=== PATIENT | male | born 1950 | race Caucasian/White ===

== ENCOUNTER 2016-10-04 08:27 | Day surgery (SDC) | payer MEDICARE ==
[~2016-10-04 08:27] MED LIST: LACTATED RINGERS 1,000 ML IV SCH
[2016-10-04 09:43] VITALS: TEMP 96.8
[2016-10-04] MEDS ORDERED: PROPOFOL 10 MG/ML 20 ML VIAL IV ONE (10:31)
[2016-10-04] MEDS ORDERED: LIDOCAINE 1% INJ 10MG/ML (20 ML MDV) ONE (10:31)
--- NOTE | 2016-10-04 10:45 | P.PCN ---
Date of Procedure: 10/04/16 Preoperative Diagnosis: Postoperative Diagnosis: Procedure(s) Performed: BRIEF HISTORY: Patient is a 66-year-old pleasant white male, scheduled for an elective colonoscopy as a part of evaluation of prior history of colon polyps. 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 PROCEDURE PERFORMED: Colonoscopy with snare polypectomy and biopsy. PREOPERATIVE DIAGNOSIS: History of colon polyps. IV sedation per Anesthesia. PROCEDURE: After informed consent was obtained, the patient, was brought into the endoscopy unit. IV sedation was administered by Anesthesia under continuous monitoring. Digital rectal examination was normal. Initially the Olympus CF- 160 flexible video colonoscope was then inserted in the rectum, gradually advanced into the cecum without any difficulty. Careful examination was performed as the scope was gradually being withdrawn. Ileocecal valve and the appendiceal orifice were visualized and appeared normal. Prep was excellent. Mucosa of the cecum, ascending colon, transverse colon, appeared normal. In the descending colon there was a 5 mm polyp that was removed by biopsy. In the sigmoid colon there was a 1 cm polyp removed by snare polypectomy. Scattered sigmoid diverticulosis seen. The rest of the descending colon, sigmoid colon, and rectum appeared normal. Retroflexion was performed in the rectum and no lesions were seen. The patient tolerated the procedure well. IMPRESSION: 5 mm descending colon polyp status post removal by biopsy 1 cm sigmoid colon polyp status post polypectomy Scattered sigmoid diverticulosis RECOMMENDATIONS: Findings of this examination were discussed with the patient as well as his family. she was advised to follow with the biopsy results. If the biopsy shows a tubular adenoma, she can have a repeat colonoscopy in 5 years. Implants: Indications for Procedure: Operative Findings: Description of Procedure:
[2016-10-04 10:50] VITALS: RESP 18
[2016-10-04 11:06] VITALS: BP 117/56; PULSE 72
== END 2016-10-04 11:20 | disposition home or self-care (01) ==
LOC: ORWHC2ENDO 08:27
PROVIDERS: ATTEND Internal Medicine Gastroenterology
DX: D12.4 Benign neoplasm of descending colon (principal); D12.5 Benign neoplasm of sigmoid colon; K57.30 Diverticulosis of large intestine without perforation or abscess without bleeding; Z86.010 Personal history of colon polyps; Z79.82 Long term (current) use of aspirin; Z79.899 Other long term (current) drug therapy; I10 Essential (primary) hypertension; E78.5 Hyperlipidemia, unspecified
CPT/HCPCS: 88305; 45380; 45385; J2001; J2704

== ENCOUNTER → 2017-07-03 | Outpatient (CLI) | payer MEDICARE ==
--- NOTE | 2017-07-03 12:07 | XR ---
EXAMINATION TYPE: XR abdomen 1V DATE OF EXAM: 07/03/2017 11:58 AM CLINICAL HISTORY: Lower abdominal pain per patient. Constipation per order. TECHNIQUE: Two Upright KUB images of the abdomen are obtained. COMPARISON: None. FINDINGS: Scattered gas is seen in non-distended small bowel loops. Gas and fecal material is seen in non-distended colon. There is 8mm left-sided calculus L2 level mid pole level left kidney. A few tin y pelvic phleboliths are felt present. No pneumoperitoneum is identified. Slightly elevated left dano diaphragm is seen. Lung bases are clear. Visualized osseous structures are intact. IMPRESSION: Overall nonobstructive bowel gas pattern. Incidental 8 mm left renal calculus.
== END | disposition home or self-care (01) ==
LOC: RADXRMAIN 11:45
PROVIDERS: ATTEND Internal Medicine
DX: N20.0 Calculus of kidney (principal)
CPT/HCPCS: 74018

== ENCOUNTER → 2017-07-15 | Outpatient (CLI) | payer MEDICARE ==
--- NOTE | 2017-07-16 08:00 | CT ---
EXAMINATION TYPE: CT abdomen pelvis wo con DATE OF EXAM: 07/15/2017 COMPARISON: NONE HISTORY: Left flank pain. CT DLP: 1054 mGycm Examination of the solid and hollow viscera is limited given the lack of contrast. FINDINGS: LUNG BASES: No evidence for nodule. No evidence for infiltrate. LIVER/GB: The gallbladder is unremarkable. No space-occupying hepatic lesion. PANCREAS: No pancreatic mass identified. No inflammatory process seen. SPLEEN: No evidence for splenomegaly. No intrasplenic lesions seen. ADRENALS: No adrenal nodules identified. No evidence for thickening. KIDNEYS: Large calculus upper pole left kidney measuring 1.7 cm. Approximately 5 smaller calculi seen scattered within the left kidney all measuring less than 5 mm. Fullness of the left renal collecting system without obstructing calculus at this time. The right kidney demonstrates a 3 mm calculus lowe r pole. No right-sided hydronephrosis. No renal masses detected. BOWEL: Appendix has a normal appearance. No evidence of bowel obstruction. No inflammatory process. Lymph nodes: No evidence for adenopathy greater than 1 cm. Abdominal aorta: Atheromatous changes seen. No evidence for aneurysm. Genital organs: No significant abnormality. Other: No significant abnormality. IMPRESSION: 1. Bilateral nonobstructing nephrolithiasis.
== END | disposition home or self-care (01) ==
LOC: RADCTMAIN 17:28
PROVIDERS: ATTEND Internal Medicine
DX: N20.0 Calculus of kidney (principal)
CPT/HCPCS: 74176

== ENCOUNTER → 2018-01-07 | Outpatient (CLI) | payer MEDICARE ==
--- NOTE | 2018-01-07 13:09 | XR ---
EXAMINATION TYPE: XR KUB DATE OF EXAM: 01/07/2018 CLINICAL DATA: 67-year-old male history of bilateral renal stones., [facility] COMPARISON: 07/03/2017 FINDINGS: Nonobstructive bowel gas pattern. Supine imaging limited for assessment of free air. Mild stool in th e right side of the abdomen. A 1.3 cm left-sided renal calculus is larger as compared to 8 mm on 07/03/2017. No radiographically ap parent right-sided renal calculi. Multiple pelvic phleboliths. IMPRESSION: 1.3 cm left upper pole renal calculus larger from 8 mm on 07/03/2017. [facility] are not well-demonstrated radiographically.
== END | disposition home or self-care (01) ==
LOC: RADXRMAIN 09:27
PROVIDERS: ATTEND Urology
DX: N20.0 Calculus of kidney (principal)
CPT/HCPCS: 74018

== ENCOUNTER → 2018-08-24 | Outpatient (CLI) | payer MEDICARE ==
--- NOTE | 2018-08-24 16:34 | US ---
EXAMINATION TYPE: US carotid duplex BILAT DATE OF EXAM: 08/24/2018 COMPARISON: None CLINICAL HISTORY: 68-year-old male I65.23 Occulsion Stenosis,. TECHNIQUE: Carotid duplex ultrasound examination. Indirect Doppler criteria is utilized. FINDINGS: EXAM MEASUREMENTS: RIGHT: Peak Systolic Velocity (PSV) cm/sec ----- Right CCA: 105.3 ----- Right ICA: 94.2 ----- Right ECA: 90.0 ICA/CCA ratio: 0.9 RIGHT: End Diastole cm/sec ----- Right CCA: 22.0 ----- Right ICA: 29.0 ----- Right ECA: 9.5 LEFT: Peak Systolic Velocity (PSV) cm/sec ----- Left CCA: 105.3 ----- Left ICA: 102.5 ----- Left ECA: 110.1 ICA/CCA ratio: 1.0 LEFT: End Diastole cm/sec ----- Left CCA: 22.1 ----- Left ICA: 30.9 ----- Left ECA: 10.8 VERTEBRALS (direction of flow): Right Vertebral: Antegrade Left Vertebral: Antegrade Rhythm: Normal Blend Technician notes: No elevated velocities, no significant stenosis. IMPRESSION: No hemodynamically significant stenosis appreciated in either internal carotid artery. Criteria for Assigning % of Stenosis / Diameter reduction (Estimation based on the indirect measurements of the internal carotid artery velocities (ICA PSV). 1. Normal (no stenosis)=ICA PSV < 125 cm/s: ratio < 2.0: ICA EDV<40 cm/s. 2. Less than 50% stenosis=ICA PSV < 125 cm/s: ratio < 2.0: ICA EDV<40 cm/s. 3. 50 to 69% stenosis=ICA PSV of 125 to 230 cm/s: ration 2.0 ? 4.0: ICA EDV 40-100 cm/s. 4. Greater than 70% stenosis to near occlusion= ICA PSV > 230 cm/s: ratio > 4.0: ICA EDV > 100 cm/s. 5. Near occlusion= ICA PSV velocities may be low or undetectable: variable ratio and ICA EDV. 6. Total occlusion=unable to detect flow.
--- NOTE | 2018-08-25 09:51 | ECHOF ---
Referral Reason:M54.5, M54.17 MEASUREMENTS -------- HEIGHT: 177.8 cm WEIGHT: 90.1 kg BP: 170/76 RVIDd: 3.5 cm (< 3.3) IVSd: 1.4 cm (0.6 - 1.1) LVIDd: 3.4 cm (3.9 - 5.3) LVPWd: 1.9 cm (0.6 - 1.1) IVSs: 1.6 cm LVIDs: 2.2 cm LVPWs: 1.7 cm LAESV Index (A-L): 10.81 ml/m Ao Diam: 3.2 cm (2.0 - 3.7) AV Cusp: 2.1 cm (1.5 - 2.6) MV EXCURSION: 11.714 mm (> 18.000) MV EF SLOPE: 71 mm/s (70 - 150) EPSS: 1.1 cm MV E Valentin: 0.77 m/s MV DecT: 176 ms MV A Valentin: 0.87 m/s MV E/A Ratio: 0.89 RAP: 5.00 mmHg RVSP: 16.53 mmHg FINDINGS -------- Sinus rhythm. This was a technically adequate study. The left ventricular size is normal. There is moderate concentric left ventricular hypertrophy. O verall left ventricular systolic function is normal with, an EF between 60 - 65 %. The diastolic fi lling pattern is normal for the age of the patient 8.78. The right ventricle is mildly enlarged. Normal LA size by volume 22+/-6 ml/m2. RA appears enlarged. Interatrial and interventricular septum intact. The aortic valve is trileaflet and appears structurally normal. There is mild aortic valve sclerosi s. Mild mitral annular calcification present. Mild mitral regurgitation is present. Mild tricuspid regurgitation present. There is no evidence of pulmonary hypertension. The right v entricular systolic pressure, as measured by Doppler, is 16.53mmHg. There is no pulmonic regurgitation present. The aortic root size is normal. The inferior vena cava is mildly dilated. Echo free space represents a pericardial fat pad. There is no pericardial effusion. CONCLUSIONS -------- 1. Sinus rhythm. 2. This was a technically adequate study. 3. The left ventricular size is normal. 4. There is moderate concentric left ventricular hypertrophy. 5. Overall left ventricular systolic function is normal with, an EF between 60 - 65 %. 6. The diastolic filling pattern is normal for the age of the patient 8.78 7. The right ventricle is mildly enlarged. 8. Normal LA size by volume 22+/-6 ml/m2. 9. RA appears enlarged. 10. Interatrial and interventricular septum intact. 11. The aortic valve is trileaflet and appears structurally normal. 12. There is mild aortic valve sclerosis. 13. Mild mitral annular calcification present. 14. Mild mitral regurgitation is present. 15. Mild tricuspid regurgitation present. 16. There is no evidence of pulmonary hypertension. 17. The right ventricular systolic pressure, as measured by Doppler, is 16.53mmHg. 18. There is no pulmonic regurgitation present. 19. The aortic root size is normal. 20. The inferior vena cava is mildly dilated. 21. Echo free space represents a pericardial fat pad. 22. There is no pericardial effusion. CUB REPORTER: Susanna Morrell RDCS
== END | disposition home or self-care (01) ==
LOC: RADUSWWP 14:50
PROVIDERS: ATTEND Internal Medicine
DX: I08.1 Rheumatic disorders of both mitral and tricuspid valves (principal); I65.23 Occlusion and stenosis of bilateral carotid arteries
CPT/HCPCS: 93306; 93880

== ENCOUNTER 2020-10-18 07:51 | Day surgery (SDC) | payer MEDICARE ==
[2020-10-13 14:32] VITALS: BMI 26.1
[~2020-10-18 07:51] MED LIST changes: +LIDOCAINE 1% (10MG/ML) FOR IV START INTRADERMA PRN
[2020-10-18 08:12] VITALS: TEMP 97.5
[2020-10-18] MEDS ORDERED: LACTATED RINGERS 1,000 ML IV ONE (08:12)
[2020-10-18] MEDS ORDERED: PROPOFOL 10 MG/ML 20 ML VIAL IV ONE (08:53)
[2020-10-18] MEDS ORDERED: LIDOCAINE 1% INJ 10MG/ML (20 ML MDV) ONE (08:53)
[2020-10-18 09:23] VITALS: RESP 16
--- NOTE | 2020-10-18 09:26 | P.PCN ---
Date of Procedure: 10/18/20 Procedure(s) Performed: BRIEF HISTORY: Patient is a 70-year-old pleasant white male scheduled for an elective colonoscopy as a part of value should prior history of colon polyps. PROCEDURE PERFORMED: Colonoscopy With snare polypectomy PREOPERATIVE DIAGNOSIS: history of colon polypsIV sedation IVper Anesthesia. PROCEDURE: After informed consent was obtained, the patient, was brought into the endoscopy unit. IV sedation was administered by Anesthesia under continuous monitoring. Digital rectal examination was normal. Initially the Olympus CF-160 flexible video colonoscope was then inserted in the rectum, gradually advanced into the cecum without any difficulty. Careful examination was performed as the scope was gradually being withdrawn. Ileocecal valve and the appendiceal orifice were visualized and appeared normal. Prep was excellent. Mucosa of the cecum, appeared normal. In the ascending colon there were 2 polyps measuring 1 cm in size both of which were removed by snare polypectomy. Rest of the ascending colon, transverse colon, descending colon, appeared normal. The sigmoid colon there was a 5 mm polyp removed by snare polypectomy. Scattered sigmoid diverticulosis seen. Rest of the sigmoid colon, and rectum appeared normal. Retroflexion was performed in the rectum and no lesions were seen. The patient tolerated the procedure well. IMPRESSION: 1 cm 2 flat ascending colon polyp status post polypectomy 5 mm; sigmoid polyp status post polypectomy Scattered sigmoid diverticulosis RECOMMENDATIONS: Findings of this examination were discussed with the patient as well as his family. He was advised to follow with the biopsy results. If the biopsy reveals adenoma he was advised to have a repeat colonoscopy in 3 years
[2020-10-18 09:38] VITALS: BP 123/65; PULSE 65
== END 2020-10-18 10:14 | disposition home or self-care (01) ==
LOC: ORWHC2ENDO 07:51
PROVIDERS: ATTEND Internal Medicine Gastroenterology
DX: D12.2 Benign neoplasm of ascending colon (principal); D12.3 Benign neoplasm of transverse colon; D12.5 Benign neoplasm of sigmoid colon; K57.30 Diverticulosis of large intestine without perforation or abscess without bleeding; E78.5 Hyperlipidemia, unspecified; I10 Essential (primary) hypertension; Z79.82 Long term (current) use of aspirin
CPT/HCPCS: 45385; 88305; J2001; J2704

== ENCOUNTER → 2022-09-04 | Outpatient (CLI) | payer MEDICARE ==
--- NOTE | 2022-09-04 11:30 | CT ---
EXAMINATION TYPE: CT heart w calcium score DATE OF EXAM: 09/04/2022 COMPARISON: None HISTORY: Screening for cardiovascular disorder. 213.9 CT DLP: 81.60 mGycm Automated exposure control for dose reduction was used. CT CALCIUM SCORING Coronary calcium is a marker for plaque (fatty deposits) in a blood vessel or atherosclerosis (harden ing of the arteries). The presence and amount of calcium detected in a coronary artery by the CT sca n, indicates the presence and amount of atherosclerotic plaque. These calcium deposits appear years before the development of heart disease symptoms such as chest pain and shortness of breath. A calcium score is computed for each of the coronary arteries based upon the volume and density of th e calcium deposits. This can be referred to as your calcified plaque burden. It does not correspond directly to the percentage of narrowing in the artery but does correlate with the severity of the un derlying coronary atherosclerosis. PROCEDURE TECHNIQUE - Prospective Gating was used. Slice thickness: 3mm. Density threshold (HU): 130, Pixel threshold: 3, Algorithm: discrete. RESULTS Region: LM Calcium Score (Agatston): 0 Volume (mm3): 0 Mass (g): 0 Region: RCA Calcium Score (Agatston): 0 Volume (mm3): 0 Mass (g): 0 Region: LAD Calcium Score (Agatston): 4.07 Volume (mm3): 2.03 Mass (g): 6.1 Region: CX Calcium Score (Agatston): 0 Volume (mm3): 0 Mass (g): 0 Region: PDA Calcium Score (Agatston): 0 Volume (mm3): 0 Mass (g): 0 Total: Calcium Score (Agatston): 4.07 Volume (mm3): 2.03 Mass (g): 6.1 TOTAL CALCIUM SCORE: 4.07 Trace amount pericardial fluid. Visualized lung rivers are hypertrophic changes spine. Small hiatal h ernia. There is calcification at the level of the aortic valve. IMPRESSION: Calcium Score: 4.07 Implication: Minimal identifiable plaque Risk of Coronary Artery Disease: Very unlikely, less than 10% risk of coronary artery disease. There is some mild calcification of the aortic valve. CALCIUM SCORE IMPLICATION RISK OF C ORONARY ARTERY DISEASE 0 No identifiable plaque Very low, generally less than 5% 1-10 Minimal identifiable plaque Very unlikely, less than 10% 11-100 Definite, at least mild atherosclerotic plaque Mild or m inimal coronary narrowings likely 101-400 Definite, at least moderate atherosclerotic plaque Mild coronary ar alejandro disease highly likely, significant narrowing possible 401 or Higher Extensive atherosclerotic plaque High lik elihood of at least one significant coronary narrowing
--- NOTE | 2022-09-04 12:30 | US ---
EXAMINATION TYPE: US carotid duplex BILAT DATE OF EXAM: 09/04/2022 COMPARISON: NONE CLINICAL INDICATION: Male, 72 years old with history of I65.23 Carotid stenosis bilateral; stenosis TECHNIQUE: Carotid duplex ultrasound examination. Indirect Doppler criteria was utilized. FINDINGS: EXAM MEASUREMENTS: RIGHT: Peak Systolic Velocity (PSV) cm/sec ----- Right CCA: 117 ----- Right ICA: 121 ----- Right ECA: 140 ICA/CCA ratio: 1.0 RIGHT: End Diastole cm/sec ----- Right CCA: 20.8 ----- Right ICA: 29.9 ----- Right ECA: 9.9 LEFT: Peak Systolic Velocity (PSV) cm/sec ----- Left CCA: 150 ----- Left ICA: 135 ----- Left ECA: 133 ICA/CCA ratio: 0.9 LEFT: End Diastole cm/sec ----- Left CCA: 27.2 ----- Left ICA: 29 ----- Left ECA: 0 VERTEBRALS (direction of flow): Right Vertebral: Antegrade Left Vertebral: Antegrade Rhythm: Normal COURT COMMISSIONER NOTES: No significant stenosis seen IMPRESSION: 1. Atheromatous plaquing anteriorly to moderate stenosis, between 50 and 69%, of the left internal ca rotid artery. 2. Mild plaquing is mild narrowing of less than 50% at the right carotid bifurcation. Criteria for Assigning % of Stenosis / Diameter reduction (Estimation based on the indirect measurements of the internal carotid artery velocities (ICA PSV). 1. Normal (no stenosis)=ICA PSV < 125 cm/s: ratio < 2.0: ICA EDV<40 cm/s. 2. Less than 50% stenosis=ICA PSV < 125 cm/s: ratio < 2.0: ICA EDV<40 cm/s. 3. 50 to 69% stenosis=ICA PSV of 125 to 230 cm/s: ration 2.0 ? 4.0: ICA EDV 40-100 cm/s. 4. Greater than 70% stenosis to near occlusion= ICA PSV > 230 cm/s: ratio > 4.0: ICA EDV > 100 cm/s. 5. Near occlusion= ICA PSV velocities may be low or undetectable: variable ratio and ICA EDV. 6. Total occlusion=unable to detect flow.
== END | disposition home or self-care (01) ==
LOC: RADCTMAIN 10:06
PROVIDERS: ATTEND Internal Medicine
DX: Z13.6 Encounter for screening for cardiovascular disorders (principal); I65.23 Occlusion and stenosis of bilateral carotid arteries; I35.8 Other nonrheumatic aortic valve disorders
CPT/HCPCS: 75571; 93880

== ENCOUNTER → 2023-04-16 | Outpatient (CLI) | payer MEDICARE ==
[2023-04-16 12:48] LABS: African American GFR (CKD) >90 (>60 ml/min/1.73 sqM); Blood Urea Nitrogen 16 mg/dL (9-20); Non-African American GFR(CKD) 87 (>60 ml/min/1.73 sqM)
--- NOTE | 2023-04-16 16:31 | CT ---
EXAMINATION TYPE: CT head without contrast CT angio head neck DATE OF EXAM: 04/16/2023 COMPARISON: MRI 01/29/2012. HISTORY: 72-year-old male I65.23 OCCLUSION AND STENOSIS OF BILATERAL CAROTID TECHNIQUE: Contiguous axial scanning of the brain performed without IV contrast. Subsequent postcontr ast scanning of the head and neck utilizing 65 mL of Isovue 370. Coronal and sagittal reconstructions performed. 3-D reconstructions generated on a dedicated independent workstation. CT DLP: 1429.2 mGycm Automated exposure control for dose reduction was used. FINDINGS: CT head without contrast: There is moderate volume loss along the bilateral cerebral convexities. Moderate patchy white matter hypodensities in both cerebral hemispheres. No evidence for acute intracranial hemorrhage, acute ischemic change, mass, mass effect, midline shif t, or extra-axial fluid collection. No hydrocephalus. No effacement of cerebral sulci or basal subara chnoid cisterns. Turcios-white matter differentiation is maintained. Some rounded prominence in the region of the pituitary gland. This appears increased compared to the patient's oldest 01/29/2012 MRI. Scattered mild to moderate mucosal thickening ethmoid air cells. There is a polyp or mucous retention cyst left sphenoid sinus measuring 1.1 cm. Mastoid air cells are well pneumatized. The globes are in tact. CTA NECK: Convention arch vessel branching anatomy. Left vertebral artery is slightly more dominant but both vertebral arteries are otherwise patent thro ughout the course. The bilateral common and bilateral internal carotid arteries are widely patent without any significan t narrowing. NASCET criteria is utilized. CTA HEAD: The V4 segment right vertebral artery becomes hypoplastic after the PICA takeoff. Otherwise, vertebra l and basilar arteries are patent. There is anatomic variation with persistent origin bilateral posterior cerebral arteries with h ypoplastic P1 segments on both sides. Posterior circulation is otherwise patent. The bilateral internal carotid arteries are patent. Slightly hypoplastic A1 segment right anterior ce rebral artery. Anterior circulation otherwise patent. No aneurysmal change identified. Dural venous sinuses are patent. IMPRESSION: CT HEAD WITHOUT CONTRAST: 1. MODERATE ATROPHY ALONG THE BILATERAL CEREBRAL CONVEXITIES. MODERATE BURDEN OF CHRONIC SMALL VESSEL ISCHEMIC DISEASE. 2. NO ACUTE INTRACRANIAL ABNORMALITY SEEN. 3. ROUNDED PROMINENCE TO THE PITUITARY GLAND, INCREASED FROM PATIENT'S OLD 2011 MRI. CONSIDER DEDICAT ED PITUITARY MRI TO EXCLUDE AN UNDERLYING LESION SUCH A PITUITARY ADENOMA. CTA NECK: 4. WIDELY PATENT VERTEBRAL AND CAROTID ARTERIES OF THE NECK. THE LEFT VERTEBRAL ARTERY IS SLIGHTLY MO RE DOMINANT. CTA HEAD: 5. NO LARGE VESSEL INTRACRANIAL ARTERIAL OCCLUSION, SIGNIFICANT STENOSIS, OR ANEURYSMAL CHANGE IS SEE N. 6. 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
== END | disposition home or self-care (01) ==
LOC: RADCTMAIN 11:38
PROVIDERS: ATTEND Internal Medicine
DX: I65.23 Occlusion and stenosis of bilateral carotid arteries (principal); I67.82 Cerebral ischemia; D36.7 Benign neoplasm of other specified sites; Q27.8 Other specified congenital malformations of peripheral vascular system
CPT/HCPCS: 82565; 84520; 70496; 70498; 36415; Q9967

== ENCOUNTER → 2023-07-03 | Outpatient (CLI) | payer MEDICARE ==
--- NOTE | 2023-07-03 14:54 | MR ---
EXAMINATION TYPE: MR pituitary wo/w con DATE OF EXAM: 07/03/2023 2:36 PM CLINICAL INDICATION:Male, 73 years old with history of D35.2 BENIGN NEOPLASM OF PITUITARY GLAND, Abno rmal CT head. COMPARISON: 01/29/2012. TECHNIQUE: Multi planar, multi sequence imaging was performed through the brain. Specialized thin s equences were obtained through the pituitary gland/sella turcica. Pre-and post gadolinium sequences were obtained. IV Contrast: 8 cc Gadavist FINDINGS: There is a hypoenhancing mass in the left pituitary with slight rightward deviation of the pituitary stalk mass measures approximately 10 mm. The ji-white junctions, ventricular system, and basal cisterns appear unremarkable. IMPRESSION: Left pituitary gland 10 mm hypoenhancing lesion compatible with adenoma.
== END | disposition home or self-care (01) ==
LOC: RADMRIMAIN 13:36
PROVIDERS: ATTEND Internal Medicine
DX: D35.2 Benign neoplasm of pituitary gland (principal)
CPT/HCPCS: 70553; A9585

== ENCOUNTER 2023-12-05 10:10 | Day surgery (SDC) | payer MEDICARE ==
[~2023-12-05 10:10] MED LIST changes: -LIDOCAINE 1% (10MG/ML) FOR IV START INTRADERMA PRN
[2023-12-05 11:00] VITALS: TEMP 97.4
[2023-12-05] MEDS: IV FLUID CONTINUATION 1,000 ML IV ONE (11:03)
[2023-12-05] MEDS ORDERED: LIDOCAINE 1% INJ 10MG/ML (20 ML MDV) ONE (11:52)
[2023-12-05] MEDS ORDERED: PROPOFOL 10 MG/ML 20 ML VIAL IV ONE (11:52)
--- NOTE | 2023-12-05 12:16 | P.PCN ---
Date of Procedure: 12/05/23 Procedure(s) Performed: BRIEF HISTORY: Patient is a 73-year-old pleasant white male scheduled for an elective colonoscopy as a part of evaluation of prior history of colon polyps. PROCEDURE PERFORMED: Colonoscopy. PREOPERATIVE DIAGNOSIS: History of colon polyps. IV sedation per Anesthesia. PROCEDURE: After informed consent was obtained, the patient, was brought into the endoscopy unit. IV sedation was administered by Anesthesia under continuous monitoring. Digital rectal examination was normal. Initially the Olympus CF-160 flexible video colonoscope was then inserted in the rectum, gradually advanced into the cecum without any difficulty. Careful examination was performed as the scope was gradually being withdrawn. Ileocecal valve and the appendiceal orifice were visualized and appeared normal. Prep was excellent. Mucosa of the cecum, ascending colon, transverse colon, descending colon, sigmoid colon, and rectum appeared normal. Scattered sigmoid diverticulosis. Retroflexion was performed in the rectum and no lesions were seen. The patient tolerated the procedure well. IMPRESSION: Normal-appearing colon from rectum to cecum no evidence of colorectal neoplasia. Scattered sigmoid diverticulosis. ECOMMENDATIONS: Findings of this examination were discussed with the patient as well as his family. He was advised to have repeat colonoscopy at age 78..
[2023-12-05 12:41] VITALS: BP 132/75; PULSE 70; RESP 20
== END 2023-12-05 12:55 | disposition home or self-care (01) ==
LOC: ORWHC2ENDO 10:10
PROVIDERS: ATTEND Internal Medicine Gastroenterology
DX: Z12.11 Encounter for screening for malignant neoplasm of colon (principal); K57.30 Diverticulosis of large intestine without perforation or abscess without bleeding; Z86.0100 Personal history of colon polyps, unspecified; Z80.0 Family history of malignant neoplasm of digestive organs; Z79.899 Other long term (current) drug therapy; Z79.82 Long term (current) use of aspirin
CPT/HCPCS: J2003; J2704; G0105; 45378

== ENCOUNTER → 2024-07-29 | Outpatient (CLI) | payer MEDICARE ==
--- NOTE | 2024-07-29 14:14 | US ---
EXAMINATION TYPE: US carotid duplex BILAT DATE OF EXAM: 07/29/2024 COMPARISON: 09/04/2022 CLINICAL INDICATION: Male, 74 years old with history of I65.23 OCCLUSION AND STENOSIS OF BILATERAL CA ROTID; Patient denies any signs or symptoms. Hx HTN Additional History: .... TECHNIQUE: Grayscale, color Doppler and spectral Doppler evaluation of the bilateral carotid systems and vertebral arteries. Indirect Doppler criteria was utilized. FINDINGS: EXAM MEASUREMENTS: RIGHT: Peak Systolic Velocity (PSV) cm/sec ----- Right CCA: 146 ----- Right ICA: 124 ----- Right ECA: 113 ICA/CCA ratio: 0.9 RIGHT: End Diastole cm/sec ----- Right CCA: 24 ----- Right ICA: 32 ----- Right ECA: 12 LEFT: Peak Systolic Velocity (PSV) cm/sec ----- Left CCA: 130 ----- Left ICA: 99 ----- Left ECA: 135 ICA/CCA ratio: 0.8 LEFT: End Diastole cm/sec ----- Left CCA: 18 ----- Left ICA: 23 ----- Left ECA: 15 VERTEBRALS (direction of flow): Right Vertebral: Antegrade Left Vertebral: Antegrade Rhythm: Normal UNIVERSITY EXTENSION SPECIALIST NOTES: No intimal thickening, calcified plaque seen proximal right ICA, and no elevated v elocities. Incidentals - multiple rounded hypoechoic lymph nodes seen bilaterally and multiple thyro id nodules seen bilaterally. Color Doppler imaging shows patency with blood flow throughout the carotid artery. Spectral waveforms are within normal limits. IMPRESSION: Right: No hemodynamically significant stenosis. Left: No hemodynamically significant stenosis. Criteria for Assigning % of Stenosis / Diameter reduction (Estimation based on the indirect measurements of the internal carotid artery velocities (ICA PSV). 1. Normal (no stenosis)=ICA PSV < 180 cm/s: ratio < 2.0: ICA EDV<40 cm/s. 2. Less than 50% stenosis=ICA PSV < 180 cm/s: ratio < 2.0: ICA EDV<40 cm/s. 3. 50 to 69% stenosis=ICA PSV of 180 to 230 cm/s: ration 2.0 ? 4.0: ICA EDV 40-100 cm/s. PSV 125-180 cm/sec and ICA/CCA PSV Ratio ? 2.0 is also consistent with 50-69% stenosis 4. Greater than 70% stenosis to near occlusion= ICA PSV > 230 cm/s: ratio > 4.0: ICA EDV > 100 cm/s. 5. Near occlusion= ICA PSV velocities may be low or undetectable: variable ratio and ICA EDV. 6. Total occlusion=unable to detect flow. [facility], , 07/29/2024 2:11 PM
--- NOTE | 2024-07-29 17:58 | CA ---
Transthoracic Echo Report Name: Tito Caceres Age: 74 Gender: M : 1950 Exam Date: 07/29/2024 12:39 Exam Location: [facility] Ht (in): 70 Wt (lb): 192 Ordering Physician: Danae Pedraza MD Attending/Referring Phys: Danae Pedraza MD Feeder Loader Nalini Capellan, RDCS Procedure CPT: Indications: I67.9 cerebrovascular disease Cardiac Hx: Technical Quality: Fair Contrast 1: Total Dose (mL): Contrast 2: Total Dose (mL): MEASUREMENTS (Male / Female) Normal Values 2D ECHO LV Diastolic Diameter PLAX 4.5 cm 4.2 - 5.9 / 3.9 - 5.3 cm LV Systolic Diameter PLAX 2.7 cm IVS Diastolic Thickness 1.0 cm 0.6 - 1.0 / 0.6 - 0.9 cm LVPW Diastolic Thickness 1.2 cm 0.6 - 1.0 / 0.6 - 0.9 cm LV Relative Wall Thickness 0.5 RV Internal Dim ED PLAX 2.5 cm LA Systolic Diameter LX 3.7 cm 3.0 - 4.0 / 2.7 - 3.8 cm LV Diastolic Volume MOD BP 57.4 cm??? 67 - 155 / 56 - 104 cm??? LV Systolic Volume MOD BP 17.9 cm??? 22 - 58 / 19 - 49 cm??? LV Ejection Fraction MOD BP 68.8 % >= 55 % LV Cardiac Index MOD BP 1304.2 cm???/min???m??? LV Diastolic Volume MOD 4C 49.9 cm??? LV Systolic Volume MOD 4C 17.8 cm??? LV Ejection Fraction MOD 4C 64.3 % LV Cardiac Index MOD 4C 1058.2 cm???/min???m??? LV Diastolic Length 4C 7.7 cm LV Systolic Length 4C 6.4 cm LV Diastolic Volume MOD 2C 63.4 cm??? LV Systolic Volume MOD 2C 16.2 cm??? LV Ejection Fraction MOD 2C 74.5 % LV Cardiac Index MOD 2C 1558.0 cm???/min???m??? LV Diastolic Length 2C 7.3 cm LV Systolic Length 2C 5.7 cm LA Volume 43.3 cm??? 18 - 58 / 22 - 52 cm??? LA Volume Index 20.7 cm???/m??? 16 - 28 cm???/m??? M-MODE Aortic Root Diameter MM 3.2 cm LA Systolic Diameter MM 4.0 cm LA Ao Ratio MM 1.3 AV Cusp Separation MM 2.2 cm DOPPLER MV Area PHT 2.4 cm??? Mitral E Point Velocity 78.1 cm/s Mitral A Point Velocity 96.2 cm/s Mitral E to A Ratio 0.8 MV Deceleration Time 316.8 ms TR Peak Velocity 211.4 cm/s TR Peak Gradient 17.9 mmHg FINDINGS Left Ventricle Left ventricular ejection fraction is estimated at 55-60 %. Normal left ventricular systolic function with no obvious regional wall motion abnormalities. Left ventricular cavity size normal. Left ventricular wall thickness normal. Right Ventricle Normal right ventricular size and function. Right ventricular systolic pressure within normal limits. Right Atrium Normal right atrial size. Left Atrium Normal left atrial size. Mitral Valve Structurally normal mitral valve. Trace mitral regurgitation. No mitral stenosis. Aortic Valve Trileaflet aortic valve. No aortic valve stenosis or regurgitation.aortic valve sclerosis. Tricuspid Valve Structurally normal tricuspid valve. Trace tricuspid regurgitation. No tricuspid stenosis. Pulmonic Valve Structurally normal pulmonic valve. Trace pulmonic regurgitation. No pulmonic stenosis. Pericardium No pericardial or pleural effusion. Aorta Normal size aortic root and proximal ascending aorta. CONCLUSIONS Normal left ventricular size and systolic function Trace mitral and tricuspid regurgitation Previewed by: Dr. Lonnie Arora MD (Electronically Signed) Final Date: 29 July 2024 17:57
== END | disposition home or self-care (01) ==
LOC: RADECHMAIN 12:34
PROVIDERS: ATTEND Internal Medicine
DX: I65.23 Occlusion and stenosis of bilateral carotid arteries (principal); I67.9 Cerebrovascular disease, unspecified; I10 Essential (primary) hypertension; I08.1 Rheumatic disorders of both mitral and tricuspid valves
CPT/HCPCS: 93306; 93880

== ENCOUNTER → 2024-08-13 | Outpatient (CLI) | payer MEDICARE ==
[2024-08-13 12:41] LABS: African American GFR (CKD) >90 (>60 ml/min/1.73 sqM); Blood Urea Nitrogen 21 mg/dL (9-20); Non-African American GFR(CKD) 86 (>60 ml/min/1.73 sqM)
--- NOTE | 2024-08-14 07:28 | CT ---
EXAMINATION TYPE: CT soft tissue neck w con DATE OF EXAM: 08/13/2024 1:01 PM COMPARISON: MRI 07/03/2023 CLINICAL INDICATION: Male, 74 years old with history of R59.0 enlarged lymph node, nodules/lymph node s found on MRI TECHNIQUE: Axial images at 3 mm thick sections. Reconstructed images in the coronal plane and sagitt al plane are reviewed. Contrast used:100 mL of Isovue 300 with IV Contrast, (none if empty) Oral contrast used: (none if empty) CT DLP: 509.9 mGycm, Automated exposure control for dose reduction was used. FINDINGS: Limited CT sections are obtained the lung apices. The lung apices appear clear. CT neck: The torus tubarius and fossa of Rosenmuller are normal. Powerplant Operator spaces are normal. Small retention cyst within the anterior left sphenoid sinus. Paranasal sinuses and mastoid air cells are otherwise clear. Parotid glands appear normal and symmetrical. Submandibular glands, are normal. Parapharyngeal spac es are normal. No suspicious adenopathy is evident. There are a few tiny lymph nodes present such as within the submandibular region injury with epigastric region of the right. Couple small lymph nodes are within the bilateral neck. The hypopharynx appears within normal limits. Vocal cord level appear symmetrical. Thyroid as visualized is normal. Patient's left-sided pituitary lesion appears slightly hypodense on the CT. IMPRESSION: 1. No acute soft tissue abnormality. 2. No suspicious enlarged lymph nodes evident. Few scattered tiny lymph nodes are present. [facility], , 08/14/2024 7:25 AM
== END | disposition home or self-care (01) ==
LOC: RADCTMAIN 11:31
PROVIDERS: ATTEND Internal Medicine
DX: E04.1 Nontoxic single thyroid nodule (principal); R59.0 Localized enlarged lymph nodes
CPT/HCPCS: 82565; 84520; 70491; 36415; Q9967

== ENCOUNTER → 2024-08-27 | Outpatient (CLI) | payer MEDICARE ==
--- NOTE | 2024-08-27 12:16 | MR ---
CLINICAL INDICATION: D35.2 pituitary adenoma. COMPARISON: MR pituitary 07/03/2023. TECHNIQUE: Multi planar, multi sequence imaging was performed through the brain. Specialized thin s equences were obtained through the pituitary gland/sella turcica. Pre-and post gadolinium sequences were obtained as well after administration of 8 cc of Gadobutrol. FINDINGS: Stable hypoenhancing mass in the left pituitary with slight rightward deviation of the pitu itary stalk. Mass measures approximately 10 x 10 x 7 mm. Demonstrates predominantly isointense T2 sig nal with a focal T2 hyperintensity eccentric to the left consistent with small cystic component. Ther e is close approximation to the left cavernous sinus without invasion. The ji-white junctions, vent ricular system, and basal cisterns appear unremarkable. Redemonstration of a left sphenoid sinus 1.2 cm mucous retention cyst. Minimal mucosal thickening of the visualized ethmoid sinuses. IMPRESSION: Stable left pituitary gland 10 mm hypoenhancing lesion compatible with an adenoma. [facility], , 08/27/2024 12:14 PM
== END | disposition home or self-care (01) ==
LOC: RADMRIMAIN 10:52
PROVIDERS: ATTEND Internal Medicine
DX: D35.2 Benign neoplasm of pituitary gland (principal); E23.6 Other disorders of pituitary gland
CPT/HCPCS: 70553; A9585